=== PATIENT | male | born 1970 | race Caucasian/White ===

== ENCOUNTER 2016-11-25 19:51 | Emergency (ER) | payer OTHER, BC ==
[~2016-11-25] VITALS: Ht 170.2 cm; Wt 122.0 kg
[~2016-11-25 19:51] MED LIST: LISI40TA4 PO; OXYC5TAB84 PO
[2016-11-25 19:52] VITALS: Ht 170.2 cm; Wt 122.0 kg
--- OUTSIDE RECORDS SUMMARY | 2016-11-25 19:54 | XMS REPORT | Referral Summary ---
Author Organization Unknown Address Unknown Phone Unavailable Care Team Providers Care Acidizer Water Well Name Role Phone Patrick Mathias Primary Care Physician [phone] Encounter VC ANTONIA [phone] Date(s): 09/06/14 - 09/06/14 [facility] [address] [place] [address] [phone] Discharge Diagnosis: Kidney stone Discharge Diagnosis: Back ache Discharge Disposition: Home or Self Care Attending Physician: Yo Jimenez MD Admitting Physician: Yo Jimenez MD Vital Signs Most recent to 1 oldest [Reference Range]: Temperature Oral 36.4 degC [35.8-37.3 degC] (09/06/14 3:21 AM) Peripheral Pulse 77 bpm Rate [60-100 bpm] (09/06/14 5:14 AM) Heart Rate Monitored 77 bpm [60-100 bpm] (09/06/14 5:16 AM) Respiratory Rate 18 br/min [14-20 br/min] (09/06/14 5:16 AM) Blood Pressure 164/90 mmHg [90-140/60-90 mmHg] *HI* (09/06/14 5:16 AM) Most recent to 1 oldest [Reference Range]: SpO2 97 % (09/06/14 5:16 AM) Problem List Condition Effective Dates Status Health Status Informant Elevated liver Active patient function(Confirmed) Allergies, Adverse Reactions, Alerts No Known Allergies Medications Flomax 0.4 mg oral capsule 1 caps, Oral, Daily, # 30 caps, 0 Refill(s) Start Date: 09/06/14 Status: Ordered Flomax 0.4 mg oral capsule 1 caps, Oral, Daily, # 5 caps, 0 Refill(s) Start Date: 07/10/14 Stop Date: 07/15/14 Status: Ordered Levsin SL 0.125 mg sublingual tablet 1 tabs, SubLingual, q4hr, # 30 tabs, 0 Refill(s), Pharmacy: Via [facility], 1 tabs SubLingual q4hr Start Date: 01/17/14 Status: Ordered lisinopril Oral, Daily, 0 Refill(s) Start Date: 01/17/14 Status: Ordered Naprosyn 250 mg oral tablet 1 tabs, Oral, BID, as needed for pain, # 20 tabs, 0 Refill(s) Start Date: 09/06/14 Status: Ordered naproxen 500 mg oral tablet 1 tabs, Oral, BID, as needed for pain, # 20 tabs, 0 Refill(s), Pharmacy: Via [facility], 1 tabs Oral BID,PRN:as needed for pain Start Date: 01/17/14 Status: Ordered oxyCODONE Oral, 0 Refill(s) Start Date: 01/17/14 Status: Ordered sertraline 100 mg oral tablet tabs, Oral, Daily, 0 Refill(s) Start Date: 01/17/14 Status: Ordered Zofran ODT 4 mg oral tablet, disintegrating 1 tabs, Oral, q8hr, Nausea, # 12 tabs, 0 Refill(s) Start Date: 07/10/14 Status: Ordered Results Chemistry Most recent to 1 oldest [Reference Range]: Sodium Venous 143 mEq/L [136-144 mEq/L] (09/06/14 3:55 AM) Potassium Venous 3.6 mEq/L 1 [3.6-5.1 mEq/L] (09/06/14 3:55 AM) Calcium Ionized 1.17 mmol/L Venous [1.19-1.41 *LOW* mmol/L] (09/06/14 3:55 AM) Total CO2 Venous 21 mEq/L [25-29 mEq/L] *LOW* (09/06/14 3:55 AM) HGB Venous NPT 15.3 gm/dL [14.0-16.0 gm/dL] (09/06/14 3:55 AM) HCT Venous 45.0 % [42.0-52.0 %] (09/06/14 3:55 AM) Glucose Venous 109 mg/dL [70-100 mg/dL] *HI* (09/06/14 3:55 AM) BUN Venous [4-20] 12 (09/06/14 3:55 AM) Creatinine Venous 1.1 mg/dL [0.7-1.2 mg/dL] (09/06/14 3:55 AM) Venous CL [99-109 106 mEq/L mEq/L] (09/06/14 3:55 AM) Anion Gap, Juan 16 [3-20] (09/06/14 3:55 AM) 1Result Comment: This test was performed on a whole blood specimen. The presence or absence of hemolysis cannot be assessed. Hemolysis can falsely elevate potassium levels. Normals are for venous specimens only. Urinalysis Most recent to 1 oldest [Reference Range]: UA Color Dk Yellow (09/06/14 4:01 AM) UA Appear Clear (09/06/14 4:01 AM) UA pH [5.0-8.0] 5.0 (09/06/14 4:01 AM) UA Leuk Est Negative [Negative] (09/06/14 4:01 AM) UA Nitrite Negative [Negative] (09/06/14 4:01 AM) UA Protein Trace [Negative] *ABN* (09/06/14 4:01 AM) UA Glucose Negative [Negative] (09/06/14 4:01 AM) UA Ketones Negative [Negative] (09/06/14 4:01 AM) UA Urobilinogen Negative [<1.0] (09/06/14 4:01 AM) UA Bili [Negative] Negative (09/06/14 4:01 AM) UA Blood [Negative] Negative (09/06/14 4:01 AM) UA Spec Grav 1.027 [1.003-1.030] (09/06/14 4:01 AM) Type Clean Catch (09/06/14 4:01 AM) Immunizations No data available for this section Procedures Procedure Date Related Diagnosis Body Site Colonoscopy 07/29/12 Scrotal varicocelectomy 08/29/04 Arthroscopy of knee1 10/28/03 Esophagogastroduodenoscopy 09/26/02 Cardiac catheterization 08/29/02 1rt knee Social History Social History Type Response Smoking Status Former smoker; Type: Cigarettes1 1pt quit 11-09-2011 Assessment and Plan No data available for this section
--- OUTSIDE RECORDS SUMMARY | 2016-11-25 19:54 | XMS REPORT | Referral Summary ---
Author Author [facility] Care Organization [facility] Address Unknown Phone Unavailable Care Team Providers Care Ems Educator Name Role Phone Ani Peñaloza Primary Care Physician [phone] Encounter Date(s): 05/26/16 - 05/26/16 [facility] [address] [place] [address] Discharge Diagnosis: Closed fracture of capitate of left wrist Discharge Diagnosis: Left hand pain Discharge Diagnosis: Swelling of left hand Discharge Diagnosis: Left wrist pain Discharge Disposition: 01-Home or Self Care Attending Physician: Navin Mcneil MD Admitting Physician: Navin Mcneil MD Vital Signs Most recent to 1 oldest [Reference Range]: Temperature Tympanic 36.6 degC [36.6-38.1 degC] (05/26/16 8:07 AM) Peripheral Pulse 88 bpm Rate [60-100 bpm] (05/26/16 8:07 AM) Respiratory Rate 20 br/min [14-20 br/min] (05/26/16 8:07 AM) Blood Pressure 130/92 mmHg [90-140/60-90 mmHg] (05/26/16 8:07 AM) SpO2 96 % (05/26/16 8:07 AM) Problem List Condition Effective Dates Status Health Status Informant Elevated liver Active patient function(Confirmed) Hypertension(Confirm Active ed) Nephrolithiasis(Conf Active irmed) Migraine Active headache(Confirmed) Allergies, Adverse Reactions, Alerts No Known Allergies Medications aspirin 81 mg, Oral, Daily, 0 Refill(s) Start Date: 12/30/15 Status: Ordered lisinopril 40 mg, Oral, Daily, 0 Refill(s) Start Date: 01/17/14 Status: Ordered [place] 7.5 mg-325 mg oral tablet 1 tabs, Oral, q4hr, as needed for pain, # 30 tabs, 0 Refill(s) Start Date: 05/26/16 Status: Ordered Results No data available for this section Immunizations No data available for this section Procedures Procedure Date Related Diagnosis Body Site Application of short arm splint (forearm to 05/26/16 hand); static.. Colonoscopy 07/29/12 Scrotal varicocelectomy 08/29/04 Arthroscopy of knee1 10/28/03 Esophagogastroduodenoscopy 09/26/02 Cardiac catheterization 08/29/02 Right inguinal hernia 1rt knee Social History Social History Type Response Smoking Status Former smoker; Type: Cigarettes1 1pt quit 11-09-2011 Assessment and Plan Extracted from: Title: Ambulatory Patient Education Author: Navin Mcneil MD Date: Musculoskeletal Wrist Fracture A wrist fracture is a break or crack in one of the bones of your wrist. Your wrist is made up of eight small bones at the palm of your hand (carpal bones) and two long bones that make up your forearm (radius and ulna). CAUSES A direct blow to the wrist. Falling on an outstretched hand. Trauma, such as a car accident or a fall. RISK FACTORS Risk factors for wrist fracture include: Participating in contact and high-risk sports, such as skiing, biking, and ice skating. Taking steroid medicines. Smoking. Being female. Being . Drinking more than three alcoholic beverages per day. Having low or lowered bone density (osteoporosis or osteopenia). Age. Older adults have decreased bone density. Women who have had menopause. History of previous fractures. SIGNS AND SYMPTOMS Symptoms of wrist fractures include tenderness, bruising, and inflammation. Additionally, the wrist may hang in an odd position or appear deformed. DIAGNOSIS Diagnosis may include: Physical exam. X-ray. TREATMENT Treatment depends on many factors, including the nature and location of the fracture, your age, and your activity level. Treatment for wrist fracture can be nonsurgical or surgical. Nonsurgical Treatment A plaster cast or splint may be applied to your wrist if the bone is in a good position. If the fracture is not in good position, it may be necessary for your health care provider to realign it before applying a splint or cast. Usually, a cast or splint will be worn for several weeks. Surgical Treatment Sometimes the position of the bone is so far out of place that surgery is required to apply a device to hold it together as it heals. Depending on the fracture, there are a number of options for holding the bone in place while it heals, such as a cast and metal pins. HOME CARE INSTRUCTIONS Keep your injured wrist elevated and move your fingers as much as possible. Do not put pressure on any part of your cast or splint. It may break. Use a plastic bag to protect your cast or splint from water while bathing or showering. Do not lower your cast or splint into water. Take medicines only as directed by your health care provider. Keep your cast or splint clean and dry. If it becomes wet, damaged, or suddenly feels too tight, contact your health care provider right away. Do not use any tobacco products including cigarettes, chewing tobacco, or electronic cigarettes. Tobacco can delay bone healing. If you need help quitting, ask your health care provider. Keep all follow-up visits as directed by your health care provider. This is important. Ask your health care provider if you should take supplements of calcium and vitamins C and D to promote bone healing. SEEK MEDICAL CARE IF: Your cast or splint is damaged, breaks, or gets wet. You have a fever. You have chills. You have continued severe pain or more swelling than you did before the cast was put on. SEEK IMMEDIATE MEDICAL CARE IF: Your hand or fingernails on the injured arm turn blue or smith, or feel cold or numb. You have decreased feeling in the fingers of your injured arm. MAKE SURE YOU: Understand these instructions. Will watch your condition. Will get help right away if you are not doing well or get worse. This information is not intended to replace advice given to you by your health care provider. Make sure you discuss any questions you have with your health care provider. Document Released: 04/24/2006 Document Revised: 08/05/2015 Document Reviewed: [employer] Patient Education 2016 [employer] No follow up information was provided. Extracted from: Title: left hand and wrist pain Author: Navin Mcneil MD Date: 05/26/16 Impression and Plan Diagnosis Closed fracture of capitate of left wrist ([id number] S62.132A, Discharge, Medical ). Left hand pain ([id number] M79.642, Discharge, Medical). Left wrist pain ([id number] M25.532, Discharge, Medical). Swelling of left hand ([id number] M79.89, Discharge, Medical). Plan: 1) Short arm/wrist/hand splint made and applied. 2) Ice to the fracture site off and on. 3) Uric acid level was drawn--normal at 5.6. 4) See Tavo Llamas or Donya next week. 5) Arm sling offered.. Orders Orders (Selected) Outpatient Orders Ordered Application Of Short Arm Splint (Forearm To Hand); Static 89864: Office Visit Level 4 Est 55725: Prescriptions Prescribed [place] 7.5 mg-325 mg oral tablet: 1 tabs, Oral, q4hr, PRN: as needed for pain, 30 tabs, 0 Refill(s). Dx/Order Association Plan: Diagnosis: Closed fracture of capitate of left wrist Comment: Ordered: Application Of Short Arm Splint (Forearm To Hand); Static [id number]; 05/26/16 14:31:00 CDT, 1, Closed fracture of capitate of left wrist | Left hand pain | Left wrist pain Office Visit Level 4 Est [id number]; 05/26/16 14:24:00 CDT, Closed fracture of capitate of left wrist | Left hand pain | Left wrist pain | Swelling of left hand Diagnosis: Left hand pain Comment: Ordered: Application Of Short Arm Splint (Forearm To Hand); Static 53818; 05/26/16 14:31:00 CDT, 1, Closed fracture of capitate of left wrist | Left hand pain | Left wrist pain Office Visit Level 4 Est 11492; 05/26/16 14:24:00 CDT, Closed fracture of capitate of left wrist | Left hand pain | Left wrist pain | Swelling of left hand Diagnosis: Left wrist pain Comment: Ordered: Application Of Short Arm Splint (Forearm To Hand); Static 41471; 05/26/16 14:31:00 CDT, 1, Closed fracture of capitate of left wrist | Left hand pain | Left wrist pain Office Visit Level 4 Est [id number]; 05/26/16 14:24:00 CDT, Closed fracture of capitate of left wrist | Left hand pain | Left wrist pain | Swelling of left hand Diagnosis: Swelling of left hand Comment: Ordered: Office Visit Level 4 Est [id number]; 10/29/16 14:24:00 CDT, Closed fracture of capitate of left wrist | Left hand pain | Left wrist pain | Swelling of left hand End of Orders ."
--- OUTSIDE RECORDS SUMMARY | 2016-11-25 19:54 | XMS REPORT ---
Author Author Ld Thomas [facility] [employer] Address Unknown Phone Unavailable Care Team Providers Care University Internship Name Role Phone Ld Thomas CP Unavailable Allergies No Known Allergies Problems Problem Type Condition Code Onset Dates Condition Status Problem Thyroid nodule E04.1 Active Assessment Hyperthyroidism E05.90 Active Problem Hyperthyroidism E05.90 Active Medications No Known Medications Results No Known Results Summary Purpose [employer] Submission
--- OUTSIDE RECORDS SUMMARY | 2016-11-25 19:54 | XMS REPORT | Referral Summary ---
Author Author [facility] Care Organization [facility] Address Unknown Phone Unavailable Care Team Providers Care Header Dock Name Role Phone Ani Peñaloza Primary Care Physician [phone] Encounter VC Date(s): 12/30/15 - 12/30/15 [facility] [address] [place] [address]- Discharge Diagnosis: History of right inguinal hernia repair Discharge Disposition: 01-Home or Self Care Attending Physician: Roni Jamison PA-C Admitting Physician: Roni Jamison PA-C Vital Signs Most recent to 1 oldest [Reference Range]: Temperature Tympanic 36.3 degC [36.6-38.1 degC] *LOW* (12/30/15 2:46 PM) Peripheral Pulse 96 bpm Rate [60-100 bpm] (12/30/15 2:46 PM) Blood Pressure 128/82 mmHg [90-140/60-90 mmHg] (12/30/15 2:46 PM) SpO2 96 % (12/30/15 2:46 PM) Problem List Condition Effective Dates Status Health Status Informant Elevated liver Active patient function(Confirmed) Allergies, Adverse Reactions, Alerts No Known Allergies Medications aspirin 0 Refill(s) Start Date: 12/30/15 Status: Ordered lisinopril Oral, Daily, 0 Refill(s) Start Date: 01/17/14 Status: Ordered oxyCODONE Oral, 0 Refill(s) Start Date: 01/17/14 Status: Ordered Results No data available for this section Immunizations No data available for this section Procedures Procedure Date Related Diagnosis Body Site Colonoscopy 07/29/12 Scrotal varicocelectomy 08/29/04 Arthroscopy of knee1 10/28/03 Esophagogastroduodenoscopy 09/26/02 Cardiac catheterization 08/29/02 1rt knee Social History Social History Type Response Smoking Status Former smoker; Type: Cigarettes1 1pt quit 11-09-2011 Assessment and Plan Extracted from: Title: R groin pain Author: Roni Jamison PA-C Date: 12/30/15 Assessment/Plan Groin pain At this time, there was no signs of infection or grossevidence of strangulated hernia. I recommended follow-up in the ER if he develops any severesymptoms,fever,septic symptoms,abdominal pain or peritonitis follow-up in ER. A shouldn't has pain medication for his knee, does not require any additional pain medication. History of right inguinal hernia repair Arranged a follow-up appointment with Dr. Mata, January 02. Patient stable upon discharge, alert and orientated with no apparent distress, and indicated understanding of discharge instructions. If symptoms worsen at any time, patient will go to the nearest ER for further evaluation.
--- OUTSIDE RECORDS SUMMARY | 2016-11-25 19:54 | XMS REPORT ---
Author Author Ld Thomas Organization [employer] Address Unknown Phone Unavailable Care Team Providers Care Marine Pipefitter Name Role Phone Ld Thomas CP Unavailable Allergies, Adverse Reactions, Alerts Substance Reaction Event Type N.K.D.A. Info Not Available Non Drug Allergy Problems Problem Type Condition Code Onset Dates Condition Status Problem Thyroid nodule E04.1 Active Assessment Hyperthyroidism E05.90 Active Problem Hyperthyroidism E05.90 Active Assessment Thyroid nodule E04.1 Active Medications Medication Code System Code Instructions Start Date End Date Status Dosage Oxycodone HCl [facility] [address]-48 30 MG Orally every 6 hrs 1 tablet as needed Lisinopril [facility] [address]-20 40 MG Orally Once a day 1 tablet Procedures Procedure Coding System Code Date FREE ASSAY (FT-3) CPT-4 25200 Jun 02, 2015 ASSAY THYROID STIM HORMONE CPT-4 03131 Jun 02, 2015 Venipuncture CPT-4 19292 Jun 02, 2015 ASSAY OF TSI CPT-4 35143 Jun 02, 2015 ASSAY OF FREE THYROXINE CPT-4 52342 Jun 02, 2015 Office Visit, New Pt., Level 3 CPT-4 09370 Jun 02, 2015 IMMUNOASSAY, LIANET CPT-4 13400 Jun 02, 2015 Vital Signs Date/Time: Jun 02, 2015 Blood Pressure Systolic 150 mm Hg Weight 249.2 lbs Height 68 in BMI 37.89 Index Respiratory Rate 16 /min Cardiac Monitoring Heart Rate 90 /min Blood Pressure Diastolic 92, 140 mm Hg Results Name Result Date Reference Range Unit Abnormality Flag Thyrotropin Receptor Ab, Serum (TRAb) Summary Purpose [employer] Submission
--- OUTSIDE RECORDS SUMMARY | 2016-11-25 19:54 | XMS REPORT | Referral Summary ---
Author Author [facility] Organization [facility] Address Unknown Phone Unavailable Care Team Providers Care Grounds And Nursery Specialist Name Role Phone Denise Stallworth Primary Care Physician [phone] Encounter [facility] [id number] Date(s): 09/12/16 - 09/12/16 [facility] [address] [place] [address] Discharge Diagnosis: Nephrolithiasis Discharge Diagnosis: Acne rosacea Discharge Diagnosis: Gout, unspecified Discharge Diagnosis: Pure hypercholesterolemia, unspecified Discharge Diagnosis: Chronic gout Discharge Diagnosis: Abnormal TSH Discharge Diagnosis: Hypertension Discharge Diagnosis: Migraine headache Discharge Diagnosis: Chronic back pain Discharge Diagnosis: Snoring Discharge Diagnosis: Adult-onset obesity Discharge Disposition: 01-Home or Self Care Attending Physician: Frank Stallworth MD Admitting Physician: Frank Stallworth MD Vital Signs Most recent to 1 oldest [Reference Range]: Blood Pressure 150/96 mmHg [90-140/60-90 mmHg] *HI* (09/12/16 2:26 PM) Problem List Condition Effective Dates Status Health Status Informant Adult-onset Active obesity(Confirmed) Chronic back Active pain(Confirmed) Elevated liver Active patient function(Confirmed) Chronic Active gout(Confirmed) Hypertension(Confirm Active ed) Nephrolithiasis(Conf Active irmed) Migraine Active headache(Confirmed) Morbid Active patient obesity(Confirmed) Acne Active rosacea(Confirmed) Abnormal Active TSH(Confirmed) Allergies, Adverse Reactions, Alerts No Known Allergies Medications Advil 200 mg oral tablet mg tabs, Oral, q6hr, 0 Refill(s) Start Date: 09/12/16 Status: Ordered cyclobenzaprine 10 mg oral tablet 10 mg 1 tabs, Oral, TID, as needed for spasm, # 60 tabs, 0 Refill(s), Pharmacy: [facility] #[id number], 1 tabs Oral TID,PRN:as needed for spasm Start Date: 09/12/16 Status: Ordered lisinopril 40 mg oral tablet 40 mg 1 tabs, Oral, Daily, # 90 tabs, 0 Refill(s), Pharmacy: [facility] # [id number] Start Date: 09/12/16 Status: Ordered Results Hematology Most recent to 1 oldest [Reference Range]: WBC [4.8-10.8 7.2 10*3/uL 10*3/uL] (09/12/16 3:00 PM) RBC [4.60-6.20] 5.51 (09/12/16 3:00 PM) Hgb [14.0-18.0 15.6 gm/dL gm/dL] (09/12/16 3:00 PM) Hct [42.0-52.0 %] 46.5 % (09/12/16 3:00 PM) MCV [82.0-99.0 fL] 84.4 fL (09/12/16 3:00 PM) MCH [27.0-32.0 pg] 28.3 pg (09/12/16 3:00 PM) MCHC [32.0-36.0 33.5 gm/dL gm/dL] (09/12/16 3:00 PM) RDW [11.5-14.5 %] 13.4 % (09/12/16 3:00 PM) Platelet [150-400 231 10*3/uL 10*3/uL] (09/12/16 3:00 PM) MPV [8.8-14.8 fL] 11.3 fL (09/12/16 3:00 PM) Immature 0.1 % Granulocytes (09/12/16 3:00 PM) [0.0-1.0 %] Neutrophils [51-75 55 % %] (09/12/16 3:00 PM) Lymphocytes [20-46 28 % %] (09/12/16 3:00 PM) Monocytes [4-11 %] 13 % *HI* (09/12/16 3:00 PM) Eosinophils [0-4 %] 4 % (09/12/16 3:00 PM) Basophils [0-2 %] 1 % (09/12/16 3:00 PM) Neutro Absolute 3.92 [1.90-7.00] (09/12/16 3:00 PM) Lymph Absolute 2.02 [0.80-3.30] (09/12/16 3:00 PM) Reeves Absolute 0.90 [0.30-1.00] (09/12/16 3:00 PM) Eos Absolute 0.29 [0.00-0.50] (09/12/16 3:00 PM) Baso Absolute 0.04 [0.00-0.20] (09/12/16 3:00 PM) Chemistry Most recent to 1 oldest [Reference Range]: Sodium Lvl [135-144 142 mEq/L mEq/L] (09/12/16 3:00 PM) Potassium Lvl 4.1 mEq/L [3.5-5.2 mEq/L] (09/12/16 3:00 PM) Chloride [99-111 107 mEq/L mEq/L] (09/12/16 3:00 PM) CO2 [23-31 mEq/L] 26 mEq/L (09/12/16 3:00 PM) AGAP [3-20] 9 (09/12/16 3:00 PM) BUN [9-21 mg/dL] 10 mg/dL (09/12/16 3:00 PM) Glucose Lvl [70-99 86 mg/dL mg/dL] (09/12/16 3:00 PM) Creatinine Lvl 0.85 mg/dL [0.72-1.25 mg/dL] (09/12/16 3:00 PM) eGFR [>60 mL/min] >60 mL/min 1 (09/12/16 3:00 PM) Calcium Lvl 9.6 mg/dL 2 [8.4-10.2 mg/dL] (09/12/16 3:00 PM) Albumin Lvl [3.5-5.0 4.2 gm/dL gm/dL] (09/12/16 3:00 PM) Total Protein 7.6 gm/dL [6.1-7.7 gm/dL] (09/12/16 3:00 PM) Globulin [1.8-4.0 3.4 gm/dL gm/dL] (09/12/16 3:00 PM) ALT [0-55 U/L] 147 U/L *HI* (09/12/16 3:00 PM) AST [5-34 U/L] 139 U/L 3 *HI* (09/12/16 3:00 PM) Alk Phos [40-150 119 U/L U/L] (09/12/16 3:00 PM) Bili Total [0.2-1.2 0.8 mg/dL mg/dL] (09/12/16 3:00 PM) Uric Acid [3.5-7.2 5.3 mg/dL mg/dL] (09/12/16 3:00 PM) Chol [0-199 mg/dL] 195 mg/dL (09/12/16 3:00 PM) Trig [0-149 mg/dL] 180 mg/dL *HI* (09/12/16 3:00 PM) HDL [40-84 mg/dL] 43 mg/dL (09/12/16 3:00 PM) LDL [0-130 mg/dL] 116 mg/dL (09/12/16 3:00 PM) VLDL Cholesterol 36 mg/dL [0-28 mg/dL] *HI* (09/12/16 3:00 PM) Cardiac Risk 4.5 [0.0-5.7] (09/12/16 3:00 PM) TSH with Reflex Free 0.64 T4 [0.35-4.94] (09/12/16 3:00 PM) Hgb A1c [4.1-5.6 %] 5.0 % (09/12/16 3:00 PM) eAvg Glucose 96.8 mg/dL (09/12/16 3:00 PM) 1Result Comment: Multiply eGFR results by 1.21 for race. 2Result Comment: Please note reference range change effective 08/31/2016. 3Result Comment: Specimen slightly hemolyzed. LDH, AST and Direct Bilirubin may be affected. Urinalysis Most recent to 1 oldest [Reference Range]: UA Color DkYellow (09/12/16 3:08 PM) UA Appear Clear (09/12/16 3:08 PM) UA pH [5.0-8.0] 6.5 (09/12/16 3:08 PM) UA Leuk Est Negative [Negative] (09/12/16 3:08 PM) UA Nitrite Negative [Negative] (09/12/16 3:08 PM) UA Protein Trace [Negative] *ABN* (09/12/16 3:08 PM) UA Glucose Negative [Negative] (09/12/16 3:08 PM) UA Ketones Negative [Negative] (09/12/16 3:08 PM) UA Urobilinogen 1.0 mg/dL [<1.0 mg/dL] (09/12/16 3:08 PM) UA Bili [Negative] Negative (09/12/16 3:08 PM) UA Blood [Negative] Negative (09/12/16 3:08 PM) UA Spec Grav 1.028 [1.003-1.030] (09/12/16 3:08 PM) Type Voided (09/12/16 3:08 PM) Immunizations No data available for this section Procedures Procedure Date Related Diagnosis Body Site Colonoscopy 07/29/12 Scrotal varicocelectomy 08/29/04 Arthroscopy of knee1 10/28/03 Esophagogastroduodenoscopy 09/26/02 Cardiac catheterization 08/29/02 Right inguinal hernia 1rt knee Social History Social History Type Response Smoking Status Former smoker; Type: Cigarettes1 1pt quit 11-09-2011 Assessment and Plan Extracted from: Title: Ambulatory Patient Education Author: Frank Stallworth MD Date: Musculoskeletal Back Pain, Adult Back pain is very common in adults.The cause of back pain is rarely dangerous and the pain often gets better over time.The cause of your back pain may not be known. Some common causes of back pain include: Strain of the muscles or ligaments supporting the spine. Wear and tear (degeneration) of the spinal disks. Arthritis. Direct injury to the back. For many people, back pain may return. Since back pain is rarely dangerous, most people can learn to manage this condition on their own. HOME CARE INSTRUCTIONS Watch your back pain for any changes. The following actions may help to lessen any discomfort you are feeling: Remain active. It is stressful on your back to sit or robotics systems engineer one place for long periods of time. Do not sit, drive, or robotics systems engineer one place for more than 30 minutes at a time. Take short walks on even surfaces as soon as you are able.Try to increase the length of time you walk each day. Exercise regularly as directed by your health care provider. Exercise helps your back heal faster. It also helps avoid future injury by keeping your muscles strong and flexible. Do not stay in bed.Resting more than 12 days can delay your recovery. Pay attention to your body when you bend and lift. The most comfortable positions are those that put less stress on your recovering back. Always use proper lifting techniques, including: Bending your knees. Keeping the load close to your body. Avoiding twisting. Find a comfortable position to sleep. Use a firm mattress and lie on your side with your knees slightly bent. If you lie on your back, put a pillow under your knees. Avoid feeling anxious or stressed.Stress increases muscle tension and can worsen back pain.It is important to recognize when you are anxious or stressed and learn ways to manage it, such as with exercise. Take medicines only as directed by your health care provider. Over-the- counter medicines to reduce pain and inflammation are often the most helpful. Your health care provider may prescribe muscle relaxant drugs.These medicines help dull your pain so you can more quickly return to your normal activities and healthy exercise. Apply ice to the injured area: Put ice in a plastic bag. Place a towel between your skin and the bag. Leave the ice on for 20 minutes, 23 times a day for the first 23 days. After that, ice and heat may be alternated to reduce pain and spasms. Maintain a healthy weight. Excess weight puts extra stress on your back and makes it difficult to maintain good posture. SEEK MEDICAL CARE IF: You have pain that is not relieved with rest or medicine. You have increasing pain going down into the legs or buttocks. You have pain that does not improve in one week. You have night pain. You lose weight. You have a fever or chills. SEEK IMMEDIATE MEDICAL CARE IF: You develop new bowel or bladder control problems. You have unusual weakness or numbness in your arms or legs. You develop nausea or vomiting. You develop abdominal pain. You feel faint. This information is not intended to replace advice given to you by your health care provider. Make sure you discuss any questions you have with your health care provider. Document Released: 07/15/2006 Document Revised: 08/05/2015 Document Reviewed: [employer] Patient Education 2016 [employer] No follow up information was provided. Extracted from: Title: Office Visit Note Author: Frank Stallworth MD Date: 09/12/16 Assessment/Plan Abnormal TSH Lab pending. Ordered: TSH with Reflex Free T4 Acne rosacea Discussed. We discussed several options for treatment for this condition. The patient declined any changes or other treatments at this time. Consider minocin 100g po daily or Dermatology consult when interested. Adult-onset obesity Diet and exercise as tolerated and feasible. Consider medication when interested. Consider saxsenda/victoza when interested. Chronic back pain Xrays and lab pending. Flexeril 10mg po tid prn may cause sedation. RTC if not improving. Ordered: XR Abdomen AP XR Chest 2 Views Chronic gout The patient's issue is nearly or completely resolved. Lab pending.Likely caused wrist pain that is resolved and related to past kidney stone. Hypertension The patient had an elevated blood pressure reading and is to monitor their bp and call with a report if consistently > 140/90. Restartlisinopril 40mg po daily and RTC in 30 days for a recheck. Ordered: CBC w/ Differential Comprehensive Metabolic Panel Urinalysis with Culture if Indicated Migraine headache This issue was reviewed, appears stable, and current therapy continued except as mentioned. Appropriate lab was reviewed from the most recent appropriate entry and lab was ordered if needed in the cpoe/nursing orders, and follow up recommended generally in 90 days and no later then six months. Nephrolithiasis The patient's issue is nearly or completely resolved. There is no further issues or testing desired by them at this time. Snoring To Sleep Medicine for evaluation. A work/school note was offered and deferred by the patient.
--- OUTSIDE RECORDS SUMMARY | 2016-11-25 19:54 | XMS REPORT | Referral Summary ---
Author Organization Unknown Address Unknown Phone Unavailable Care Team Providers Care Bricklayer Paving Brick Name Role Phone Patrick Mathias Primary Care Physician [phone] Encounter [facility] [id number] Date(s): 11/23/14 - 11/23/[address] [id number] Discharge Disposition: Home or Self Care Attending Physician: Eriberto Mathias MD Vital Signs No data available for this section Problem List Condition Effective Dates Status Health [...] # 30 tabs, 0 Refill(s), Pharmacy: [facility], 1 tabs SubLingual q4hr Start [...] # 20 tabs, 0 Refill(s), Pharmacy: [facility], 1 tabs Oral BID,PRN:as needed for pain Start Date: 01/17/14 Status: Ordered oxyCODONE Oral, 0 Refill(s) Start Date: 01/17/14 Status: Ordered sertraline 100 mg oral tablet tabs, Oral, Daily, 0 Refill(s) Start Date: 01/17/14 Status: Ordered Zofran ODT 4 mg oral tablet, disintegrating 1 tabs, Oral, q8hr, Nausea, # 12 tabs, 0 Refill(s) Start Date: 07/10/14 Status: Ordered Results No data available for [...]
--- OUTSIDE RECORDS SUMMARY | 2016-11-25 19:54 | XMS REPORT ---
Author Author Rodrigo Ball Organization [employer] Address Unknown Phone Unavailable Care Team Providers Care Machine Hamper Maker Name Role Phone Rodrigo Ball CP Unavailable Allergies No Known Allergies Problems Problem Type Condition Code Onset Dates Condition Status Problem Essential (primary) hypertension I10 Active Medications No Known Medications Results No Known Results Summary Purpose [employer] Submission
--- OUTSIDE RECORDS SUMMARY | 2016-11-25 19:55 | XMS REPORT | Referral Summary ---
Author Author [facility] Organization [facility] Address Unknown Phone Unavailable Care Team Providers Care Seat Scooper Machine Name Role Phone Ani Peñaloza Primary Care Physician [phone] Encounter [facility] Date(s): 01/04/16 - 01/04/16 [facility] [address] [place] [address] [place] [id number]- Discharge Diagnosis: Rt inguinal pain Discharge Disposition: 01-Home or Self Care Attending Physician: Constantin Cordon MD Admitting Physician: Constantin Cordon MD Vital Signs Most recent to 1 oldest [Reference Range]: Temperature Tympanic 37 degC [36.6-38.1 degC] (01/04/16 10:33 AM) Blood Pressure 138/100 mmHg [90-140/60-90 mmHg] (01/04/16 10:33 AM) Problem List Condition Effective Dates Status Health Status Informant Elevated liver Active patient function(Confirmed) Hypertension(Confirm Active ed) Nephrolithiasis(Conf Active irmed) Migraine Active headache(Confirmed) Allergies, Adverse Reactions, Alerts No Known Allergies Medications aspirin 81 mg, Oral, Daily, 0 Refill(s) Start Date: 12/30/15 Status: Ordered lisinopril 40 mg, Oral, Daily, 0 Refill(s) Start Date: 01/17/14 Status: Ordered oxyCODONE 5 mg, Oral, TID, 0 Refill(s) Start Date: 01/17/14 Status: Ordered Results No data available for this section Immunizations No data available for this section Procedures Procedure Date Related Diagnosis Body Site Colonoscopy 07/29/12 Scrotal varicocelectomy 08/29/04 Arthroscopy of knee1 10/28/03 Esophagogastroduodenoscopy 09/26/02 Cardiac catheterization 08/29/02 Right inguinal hernia 1rt knee Social History Social History Type Response Smoking Status Former smoker; Type: Cigarettes1 1pt quit 04-13-2012 Assessment and Plan Extracted from: Title: Ambulatory Patient Education Author: Constantin Cordon MD Date: 01/03 Emergency Medicine Abdominal Pain, Adult Many things can cause abdominal pain. Usually, abdominal pain is not caused by a disease and will improve without treatment. It can often be observed and treated at home. Your health care provider will do a physical exam and possibly order blood tests and X-rays to help determine the seriousness of your pain. However, in many cases, more time must pass before a clear cause of the pain can be found. Before that point, your health care provider may not know if you need more testing or further treatment. HOME CARE INSTRUCTIONS Monitor your abdominal pain for any changes. The following actions may help to alleviate any discomfort you are experiencing: Only take [id number]-[id number] or prescription medicines as directed by your health care provider. Do not take laxatives unless directed to do so by your health care provider. Try a clear liquid diet (broth, tea, or water) as directed by your health care provider. Slowly move to a bland diet as tolerated. SEEK MEDICAL CARE IF: You have unexplained abdominal pain. You have abdominal pain associated with nausea or diarrhea. You have pain when you urinate or have a bowel movement. You experience abdominal pain that wakes you in the night. You have abdominal pain that is worsened or improved by eating food. You have abdominal pain that is worsened with eating fatty foods. You have a fever. SEEK IMMEDIATE MEDICAL CARE IF: Your pain does not go away within 2 hours. You keep throwing up (vomiting). Your pain is felt only in portions of the abdomen, such as the right side or the left lower portion of the abdomen. You pass bloody or black tarry stools. MAKE SURE YOU: Understand these instructions. Will watch your condition. Will get help right away if you are not doing well or get worse. This information is not intended to replace advice given to you by your health care provider. Make sure you discuss any questions you have with your health care provider. Document Released: 04/24/2006 Document Revised: 08/05/2015 Document Reviewed: [employer] Patient Information 2016 [employer], [facility]. No follow up information was provided.
--- OUTSIDE RECORDS SUMMARY | 2016-11-25 19:55 | XMS REPORT | Continuity of Care Document ---
Author Author [facility] Organization [facility] Address Unknown Phone Unavailable Allergies Active Description Code Type Severity Reaction Onset Reported/Identified Relationship to Patient Clinical Status Yes No Known Drug Allergies Drug Allergy 10/19/2010 Yes No Known Drug Allergies Drug Allergy N/A N/A 05/07/2013 Yes No Known Allergies NKMA N/A N/A 01/17/2014 Yes No Known Allergies NKMA N/A N/A 01/17/2014 Medications Medication Packaging Start Date Stop Date Route Dosage Sig oxyCODONE(oxyCODONE) 01/17/2014 05/26/2016 Oral 5 mg 5 mg, Oral , TID, 0 Refill(s) sertraline(sertraline 100 mg oral tablet) tabs 01/17/201409/2015 Oral mg tabs, Oral, Daily lisinopril(lisinopril) 01/17/2014 09/12/2016 Oral 40 mg 40 mg, Oral, Daily, 0 Refill(s) ondansetron(Zofran) 2 mL 01/17/2014 01/17/2014 IV Push 4 mg 4 mg, IV Push, Once HYDROmorphone(Dilaudid) 1 mL 01/17/2014 01/17/2014 IV Push 1 mg 1 mg, IV Push, Once ketorolac(Toradol) 1 mL 01/17/2014 01/17/2014 IV Push 30 mg 30 mg , IV Push, Once naproxen(naproxen 500 mg oral tablet) 1 tabs 01/17/20142015 Oral 500 mg 1 tabs, Oral, BID, 20 tabs, PRN: as needed for pain hyoscyamine(Levsin SL 0.125 mg sublingual tablet) 1 tabs 01/17/2014 12/30/2015 SubLingual 0.125 mg 1 tabs, SubLingual, q4hr, 30 tabs ketorolac(Toradol) 1 mL 07/10/2014 07/10/2014 IV Push 30 mg 30 mg , IV Push, Once morphine(morphine) 2 mL 07/10/2014 07/10/2014 IV Push 4 mg 4 mg, IV Push, Once ondansetron(Zofran) 2 mL 07/10/2014 07/10/2014 IV Push 4 mg 4 mg, IV Push, Once oxyCODONE-acetaminophen(Percocet 5/325 oral tablet) 1 tabs 07/10/2014 07/23/2014 Oral 1 tabs, Oral, q6hr, 24 tabs, PRN: as needed for pain ondansetron(Zofran ODT 4 mg oral tablet, disintegrating) 1 tabs 07/10/2014 12/30/2015 Oral 4 mg 1 tabs, Oral, q8hr, 12 tabs, PRN: Nausea tamsulosin(Flomax 0.4 mg oral capsule) 1 caps 07/10/20142015 Oral 0.4 mg 1 caps, Oral, Daily, 5 caps ketorolac(Toradol) 2 mL 09/06/2014 09/06/2014 IntraMuscular 60 mg 60 mg, IntraMuscular, Once Sodium Chloride 0.9%(Sodium Chloride 0.9% 1,000 mL) 1,000 mL 09/06/2014 09/06/2014 IV bolus, IV tamsulosin(Flomax 0.4 mg oral capsule) 1 caps 09/06/20142015 Oral 0.4 mg 1 caps, Oral, Daily, 30 caps naproxen(Naprosyn 250 mg oral tablet) 1 tabs 09/06/20142015 Oral 250 mg 1 tabs, Oral, BID, 20 tabs, PRN: as needed for pain aspirin(aspirin) 12/30/2015 09/12/2016 Oral 81 mg 81 mg, Oral , Daily, 0 Refill(s) HYDROcodone-acetaminophen([place] 7.5 mg-325 mg oral tablet) 1 tabs 05/26/2016 09/12/2016 Oral 1 tabs, Oral, q4hr, PRN: as needed for pain, 30 tabs, 0 Refill(s) ibuprofen(Advil 200 mg oral tablet) tabs 09/12/2016 Oral mg mg=tabs, Oral, q6hr, 0 Refill(s) lisinopril(lisinopril 40 mg oral tablet) 1 tabs 09/12/2016 Oral 40 mg 40 mg=1 tabs, Oral, Daily, 90 tabs, 0 Refill(s) cyclobenzaprine(cyclobenzaprine 10 mg oral tablet) 1 tabs 09/12/2016 Oral 10 mg 10 mg=1 tabs, Oral, TID, PRN: as needed for spasm, 60 tabs, 0 Refill(s) minocycline(Minocin 100 mg oral capsule) 1 caps 10/12/2016 Oral 100 mg 100 mg=1 caps, Oral, Daily, 30 caps, 0 Refill(s) Problems Date Dx Coded Attending Type Code Diagnosis Diagnosed By 03/26/2012 Kassidy Mathias MD Final 305.1 TOBACCO USE DISORDER 03/26/2012 Kassidy Mathias MD Final 715.96 OSTEOARTHOSIS NOS-LOW LE 05/07/2013 Roberto Bray III, MD Final 401.9 HYPERTENSION NOS 05/07/2013 Roberto Bray III, MD Final 535.50 GASTRODUODENITIS NOS 05/07/2013 Roberto Bray III, MD Final 571.8 CHRONIC LIVER DIS NEC 05/07/2013 Roberto Bray III, MD Admitting 789.00 ABDOMINAL PAIN-SITE NOS 07/12/2014 Kalpana Drew Final 592.1 CALCULUS OF URETER 07/12/2014 Kalpana Drew Reason 789.09 ABDOMINAL PAIN, OTHER SPECIFIED SITE ; MULTIPLE SITES 09/07/2014 Wilber Owen MD Final 592.0 CALCULUS OF KIDNEY 09/07/2014 Wilber Owen MD Final 724.5 BACKACHE, UNSPECIFIED 09/07/2014 Wilber Owen MD Reason 789.09 ABDOMINAL PAIN, OTHER SPECIFIED SITE ; MULTIPLE SITES 11/25/2014 Reason 241.0 NONTOXIC UNINODULAR GOITER 11/25/2014 Final 242.90 THYROTOXICOSIS WITHOUT MENTION OF GOITER OR OTHER CAUSE, AND WITHOUT MENTIO Procedures Results Test Result Range Uric Acid - 09/12/16 15:00 Uric Acid 5.3 mg/dL 3.5-7.2 Comprehensive Metabolic Panel (CMP) - 09/12/16 15:00 Albumin 4.2 g/dL 3.5-5.0 Alkaline Phosphatase 119 U/L 40-150 ALT (SGPT) 147 U/L 0-55 Anion Gap 9 NA 3-20 AST (SGOT) 139 U/L 5-34 Bilirubin Total 0.8 mg/dL 0.2-1.2 BUN 10 mg/dL 9-21 Calcium 9.6 mg/dL 8.4-10.2 Chloride 107 mEq/L 99-111 CO2 26 mEq/L 23-31 Creatinine 0.85 mg/dL 0.72-1.25 Globulin 3.4 g/dL 1.8-4.0 Glucose 86 mg/dL 70-99 Potassium 4.1 mEq/L 3.5-5.2 Protein 7.6 g/dL 6.1-7.7 Sodium 142 mEq/L 135-144 Lipid Panel - 09/12/16 15:00 Cardiac Risk 4.5 0.0-5.7 Cholesterol 195 mg/dL 0-199 HDL Cholesterol 43 mg/dL 40-84 LDL Cholesterol 116 mg/dL 0-130 Triglycerides 180 mg/dL 0-149 VLDL Cholesterol 36 mg/dL 0-28 eGFR - 09/12/16 15:00 eGFR >60 mL/min >60 CBC With Platelet and Differential - 09/12/16 15:00 Absolute Basophils 0.04 10*3/uL 0.00- 0.20 Absolute Eosinophils 0.29 10*3/uL 0.00- 0.50 Absolute Lymphocytes 2.02 10*3/uL 0.80- 3.30 Absolute Monocytes 0.90 10*3/uL 0.30- 1.00 Absolute Neutrophils 3.92 10*3/uL 1.90- 7.00 Basophils 1 % 0-2 Eosinophils 4 % 0-4 HCT 46.5 % 42.0-52.0 HGB 15.6 g/dL 14.0-18.0 Immature Granulocytes 0.1 % 0.0-1.0 Lymphocytes 28 % 20-46 MCH 28.3 pg 27.0-32.0 MCHC 33.5 g/dL 32.0-36.0 MCV 84.4 fL 82.0-99.0 Monocytes 13 % 4-11 MPV 11.3 fL 8.8-14.8 Neutrophils 55 % 51-75 Platelet Count 231 K/uL 150-400 RBC 5.51 10*6/uL 4.60-6.20 RDW 13.4 % 11.5-14.5 WBC 7.2 K/uL 4.8-10.8 TSH with Reflex Free T4 - 09/12/16 15:00 TSH with Reflex Free T4 0.64 uIU/mL 0.35- 4.94 Hemoglobin A1C - 09/12/16 15:00 Hemoglobin A1C 5.0 % 4.1-5.6 Estimated Average Glucose - 09/12/16 15:00 Estimated Average Glucose 96.8 mg/dL Urinalysis with reflex microscopic - 09/12/16 15:08 Appearance Clear NA Blood Negative NA Negative Color DkYellow NA Glucose, Urine Negative Negative Ketones Negative Negative Leukocyte Esterase Negative NA Negative Nitrites Negative NA Negative pH 6.5 NA 5.0-8.0 Protein Trace Negative Specific [place] 1.028 NA 1.003-1.030 UA Collection type Voided NA Urobilinogen 1.0 mg/dL <1.0 Encounters ACCT No. Visit Date/Time Discharge Status Pt. Type Provider Facility Loc./Unit Complaint [id number] 05/07/2013 18:55:00 2012 20:50:00 DIS Emergency Asa MORTENSEN MD, Roberto Moreira [facility] [id number] 03/26/2012 10:47:00 2011 23:59:59 CLS Outpatient Mey CAI, Kassidy Nguyen [facility] FO
--- NOTE | 2016-11-25 20:14 | NUR ---
PROVIDER DR MCCULLOUGH IN TO SEE PATIENT.
--- OUTSIDE RECORDS SUMMARY | 2016-11-25 20:25 | XMS REPORT | Continuity of Care Document ---
Author Author [facility] Organization [facility] Address Unknown Phone Unavailable Allergies Active Description [...] 81 mg, Oral , Daily, 0 Refill(s) HYDROcodone-acetaminophen([place] 7.5 mg-325 mg oral tablet) 1 tabs [...] 6.5 NA 5.0-8.0 Protein Trace Negative Specific [place] 1.028 NA 1.003-1.030 UA Collection type Voided NA Urobilinogen 1.0 mg/dL <1.0 Encounters ACCT No. Visit Date/Time Discharge Status Pt. Type Provider Facility Loc./Unit Complaint [id number] 05/07/2013 18:55:00 2012 20:50:00 DIS Emergency Asa MORTENSEN MD, Roberto [facility] [id number] 03/26/2012 10:47:00 2011 23:59:59 CLS Outpatient Mey CAI, Kassidy Nguyen [facility] FO
[2016-11-25] MEDS ORDERED: KETOROLAC 60mg/2ml INJECTION IM ONE (20:30)
[2016-11-25] MEDS ORDERED: CYCL-375 PO (20:37)
[2016-11-25 20:40] LABS: BASOPHILS # (AUTO) 0.1 T/MM3 (0-0.2); BASOPHILS % (AUTO) 0.9 % (0-2); EOSINOPHILS # (AUTO) 0.3 T/MM3 (0-0.5); EOSINOPHILS % (AUTO) 4.7 % (0-4); HCT - HEMATOCRIT 45.6 % (41-53); HGB - HEMOGLOBIN 15.9 GM/DL (13.5-17.5); IMMATURE GRANULOCYTE # (AUTO) 0.01 T/MM3 (0.00-0.03); IMMATURE GRANULOCYTE % (AUTO) 0.1 % (0.0-0.5); LYMPHOCYTES # (AUTO) 2.3 T/MM3 (1-4.8); MEAN CORPUSCULAR HGB 29.1 UUG (26-34); MEAN CORPUSCULAR HGB CONC(MCHC 34.9 GM/DL (31-37); MEAN CORPUSCULAR VOLUME 83.4 UM3 (80-100); MEAN PLATELET VOLUME 10.2 UM3 (9.4-12.4); MONOCYTES # (AUTO) 0.5 T/MM3 (0-0.8); MONOCYTES % (AUTO) 7.5 % (0-9.0); NEUTROPHILS #(AUTO)-ABSOLUTE 3.7 T/MM3 (1.8-7.7); NEUTROPHILS % (AUTO) 53.8 % (33-66); RED BLOOD COUNT 5.47 M/MM3 (4.50-5.90)
--- NOTE | 2016-11-25 20:40 | NUR ---
TO XRAY PER W/C.
[2016-11-25 20:50] LABS: ALBUMIN 4.2 G/DL (3.5-5.0); ALBUMIN/GLOBULIN RATIO 1.2 RATIO (1.1-2.2); ALKALINE PHOSPHATASE 123 U/L (38-126); ALT (SGPT) 244 U/L (21-72); ANION GAP 14 MEQ/L (5-15); AST (SGOT) 222 U/L (17-59); BUN/CREATININE RATIO 12 RATIO (6-26); CALCIUM 9.9 MG/DL (8.4-10.2); CHLORIDE 106 MEQ/L (98-107); CO2 - CARBON DIOXIDE 25 MEQ/L (22-30); CREATININE 0.9 MG/DL (0.8-1.5); GLOMERULAR FILTRATION RATE 90; GLUCOSE 113 MG/DL (75-110); LIPASE 146 U/L (23-300); POTASSIUM 3.9 MEQ/L (3.6-5); SODIUM 145 MEQ/L (134-144); TOTAL PROTEIN 7.8 G/DL (6.3-8.2)
[2016-11-25] MEDS ORDERED: HYDROMORPHONE 2mg/ml INJECTION IM ONE (21:15)
--- NOTE | 2016-11-25 21:15 | NUR ---
PROVIDER DR MCCULLOUGH IN TO SEE PATIENT.
--- NOTE | 2016-11-25 21:23 | NUR ---
TO CT PER W/C.
[2016-11-25 21:27] LABS: BLOOD, URINE NEGATIVE (NEGATIVE); COLOR,URINE YELLOW (YELLOW); LEUKOCYTE ESTERASE ,URINE NEGATIVE (NEGATIVE); NITRITE,URINE NEGATIVE (NEGATIVE); UROBILINOGEN,URINE 0.2 EU/DL (NORMAL)
--- NOTE | 2016-11-25 22:27 | NUR ---
PROVIDER DR MCCULLOUGH IN TO SEE PATIENT.
--- NOTE | 2016-11-25 22:36 | ERPDOC ---
Departure Disposition Decision Date: Nov 25, 2016 Disposition Decision Time: 22:39 Disposition: 01 DISCHARGED HOME, SELF-CARE Impression Impression Impression: Primary Impression: Thoracic nerve root compression Severity: Moderate Condition: Improved Seen By: Physician only Referrals: JASS EPPERSON MD (Family) Patient Instructions: Thoracic Back Strain (ED) Problems/Meds/Labs Reviewed?: Yes Medications reviewed and manag: Yes Additional Instructions: Prednisone 10 mg tablet, 3 tablets daily for 3 days, 2 tablets daily for 3 days , 1 tablet daily for 3 days. Percocet 5 mg tablet, one to 2 tablets every 6 hours as needed for pain. This is a limited dose and is intended for short-term use only. Please follow up with her primary care provider as soon as possible. Follow up care ordered?: Yes Mental Status: Alert, Oriented Scripts Oxycodone HCl/Acetaminophen (Percocet 5-325 mg Tablet) 5-325 Tablet 1-2 TAB PO QID for PAIN, #20 TAB Take 1 tablet, by mouth, 4 times a day. Prov: ROSALINE MCCULLOUGH MD 11/25/16 Prednisone (Prednisone) 10 Mg Tablet 0 PO TAPERQD, #18 TAB 30 mg daily x3 days 20 mg daily x3 days 10 mg daily x2 days Prov: ROSALINE MCCULLOUGH MD 11/25/16 HPI - Back Pain General Chief Complaint: Back Pain or Injury Stated Complaint: BACK PAIN Time Seen by Provider: 20:01 HPI - Back Pain Initial Comments 46-year-old male presents with right-sided rib and back pain. This was sudden onset with no injury that he can think of. However he has been moving, he does have movers they're doing all the lifting and bending but he has been active during the move. No fever or chills, no difficulty urinating. He did spend 24 years in the , was a [employer], and very active carrying extra weight. He has had some back pain since that time, but nothing into the ribs on the side. Pain does not radiate down his legs, he's had no trouble losing bowel or bladder control. Allergies: Coded Allergies: No Known Allergies (Unverified , 09/28/15) Past History Past Medical History Metabolic: hypertension, other Family History Family PMH: FOUND: CAD, [place] Social History Smoking Status: Unknown if ever smoked Substance Use Type: does not use Alcohol Intake: none Record Review Pertinent history updated: Yes Review of Systems Musculoskeletal General: see HPI Neurological General: see HPI All other Systems All Other Systems: Reviewed and Negative Physical Exam General General Nourishment: well nourished, well developed, appears stated age Distress Description Any movement of back or hips seems to cause the pain to spasm into his side. Vitals and Pain First Documented Vital Signs Date Time Temp Pulse Resp B/P Pulse Ox O2 Delivery O2 Flow Rate FiO2 11/25/16 19:52 98.6 104 16 167/91 95 Room Air Weight: Kilograms: 122.000 Height (feet): 5 Height (inches): 7.00 Triage Pain Scale: Normal Exams: Head: Normocephalic w/o trauma Chest/Resp: Clear all [place], with good airflow, and symmetry bilaterally CV: Regular rate and rhythm, without murmur or gallop, Pulses 2+ all extremities, capillary refill, <2 seconds all ext., no pedal edema noted Neurologic: Patient is alert, and oriented, cranial nerves, motor/sensory/ cerebellar, exams w/o gross deficits, to observation Psychiatric: Patient exhibits, appropriate attention, emotion and affect Musculoskeletal (brief) Comments Ribs and spine are nontender to palpation. However any movement of back causes pain to radiate to the rib. Right side thoracic. Neurologic (brief) Comments Cranial nerve II through XII grossly intact, motor strength and sensory are intact in all extremities. Differential Diagnoses Considering: Other (nerve compression, muscle pain, radiculopathy) Progress Results/Orders Orders Procedure Category Date Status Time Cmp - Comprehensive LAB 11/25/16 Complete Metabolic 20:22 Cbc W/Auto LAB 11/25/16 Complete Diff-Reflex Manual 20:22 Lipase LAB 11/25/16 Complete 20:22 Ua, Dip Wreflex LAB 11/25/16 Complete Microsc [employer] System Admin 20:22 Lumbar Spine 2-3 Views RAD 11/25/16 Taken 20:22 Thoracic Spine RAD 11/25/16 Taken Series, 3 View 20:22 Ketorolac (Toradol) PHA 11/25/16 Complete 20:30 Hydromorphone PHA 11/25/16 Logged (Dilaudid) 21:15 Ct Thoracic Spine W/O CT 11/25/16 Logged Contrast 21:14 Lab Results Laboratory Tests Test 11/25/16 20:30 11/25/16 21:22 White Blood Count 7.0T/MM3 Red Blood Count 5.47M/MM3 Hemoglobin 15.9GM/DL Hematocrit 45.6% Mean Corpuscular Volume 83.4UM3 Mean Corpuscular Hemoglobin 29.1UUG Mean Corpuscular Hemoglobin Concent 34.9GM/DL RDW Standard Deviation 42.9FL Platelet Count 219T/MM3 Mean Platelet Volume 10.2UM3 Immature Granulocyte % (Auto) 0.1% Neutrophils (%) (Auto) 53.8% Lymphocytes (%) (Auto) 33.0% Monocytes (%) (Auto) 7.5% Eosinophils (%) (Auto) 4.7% Basophils (%) (Auto) 0.9% Absolute Immature Granulocyte (auto 0.01T/MM3 Absolute Neutrophils (auto) 3.7T/MM3 Absolute Lymphocytes (auto) 2.3T/MM3 Absolute Monocytes (auto) 0.5T/MM3 Absolute Eosinophils (auto) 0.3T/MM3 Absolute Basophils (auto) 0.1T/MM3 Turbidity < 20 Sodium Level 145MEQ/L Potassium Level 3.9MEQ/L Chloride Level 106MEQ/L Carbon Dioxide Level 25MEQ/L Anion Gap 14MEQ/L Blood Urea Nitrogen 11.0MG/DL Creatinine 0.9MG/DL Glomerular Filtration Rate Calc 90 BUN/Creatinine Ratio 12RATIO Glucose Level 113MG/DL Calculated Osmolality 279MOSM/KG Calcium Level 9.9MG/DL Total Bilirubin 0.70MG/DL Icterus Index < 2 Aspartate Amino Transf (AST/SGOT) 222U/L Alanine Aminotransferase (ALT/SGPT) 244U/L Alkaline Phosphatase 123U/L Total Protein 7.8G/DL Albumin 4.2G/DL Globulin 3.6G/DL Albumin/Globulin Ratio 1.2RATIO Lipase 146U/L Chemistry Specimen Hemolysis < 15 Urine Collection Type Cleancatch-midstream Urine Color Yellow Urine Turbidity Clear Urine pH 5.0 Urine Specific [place] >=1.030 Urine Protein Negative Urine Glucose (UA) Negative Urine Ketones Negative Urine Blood Negative Urine Nitrite Negative Urine Bilirubin Negative Urine Urobilinogen 0.2EU/DL Urine Leukocyte Esterase Negative Urinalysis Comment Microscopic not ind. Medications Current ED Medications Ketorolac Tromethamine (Toradol) 60 mg O ONCE IM Last administered on t 20:34; Start 11/25/16 at 20:30; Stop 11/25/16 at 20:31; Status DC Hydromorphone HCl (Dilaudid) 1 mg O ONCE IM Last administered on 11/25/16t 21: 20; Start 11/25/16 at 21:15; Stop 11/25/16 at 21:16; Status UNV Progress Progress X-ray was questionable for compression of T9 her T10, CT of spine was obtained and was read as negative. A 2 cm incidental nodule along kidney was noted and patient was informed. I do think this is a radiculopathy from nerve compression , patient may need an MRI to better evaluate. We'll start him on prednisone and pain medication for the next few days while he gets in with a regular physician. He was given Dilaudid 0.5 mg and Toradol 60 mg IM, pain did not fully resolve, he was given 1 more milligram of Dilaudid IM and this did help significantly with his pain. He'll be discharged with Percocet and prednisone ROSALINE MCCULLOUGH MD Nov 25, 2016 22:36
[2016-11-25] MEDS ORDERED: OXYC1TAB8 PO (22:41)
[2016-11-25] MEDS ORDERED: PRED10TA PO (22:41)
[2016-11-25] MEDS ORDERED: OXYCODONE/APAP 5/325 (Prepack) SENT HOME ONE (22:45)
[2016-11-25] MEDS ORDERED: PredniSONE 10 MG TABLET PO ONE (22:45)
[2016-11-25 22:53] VITALS: BP 160/85; PULSE 95; RESP 16; TEMP 98.8; O2SAT 98
--- NOTE | 2016-11-26 08:25 | DI ---
EXAM: LUMBAR SPINE 2-3 VIEWS DATE: 11/25/2016 8:22 PM ENCOUNTER: Initial INDICATION: ITS.REASON: low back pain COMPARISON: Concurrent thoracic spine radiographs, subsequent Thoracic Spine CT of the same day TECHNIQUE: 3 views of the lumbar spine were obtained. FINDINGS: Five non rib-bearing lumbar type vertebrae are identified. Bony mineralization is normal. The vertebral bodies are normal in height and alignment without evidence of acute fracture or significant spondylolisthesis. Mild multilevel degenerative disc disease and facet arthropathy, most pronounced at L4-L5 and L5-S1. The sacroiliac joints are normal. The visualized bowel gas pattern is unremarkable. Mild aortic atherosclerotic calcifications. IMPRESSION: 1. No acute fracture or malalignment. 2. Mild degenerative spondylosis. .
--- NOTE | 2016-11-26 08:27 | DI ---
EXAM: THORACIC SPINE SERIES, 3 VIEW DATE: 11/25/2016 8:22 PM ENCOUNTER: Initial INDICATION: ITS.REASON: thoracic back pain COMPARISON: Concurrent lumbar spine radiographs, subsequent thoracic spine CT of the same day TECHNIQUE: 3 views of the thoracic spine were obtained. FINDINGS: Bony mineralization is normal. The normal thoracic kyphosis is maintained. The vertebral bodies maintain normal height and alignment without evidence of acute compression fracture or significant spondylolisthesis. Degenerative disc disease. The visualized lungs are clear. The heart is normal in size. IMPRESSION: Degenerative disc disease with no acute fracture or malalignment of the thoracic spine appreciated. .
--- NOTE | 2016-11-26 08:35 | DI ---
EXAM: CT THORACIC SPINE W/O CONTRAST DATE: 11/25/2016 9:14 PM ENCOUNTER: Subsequent INDICATION: ITS.REASON: lower thoracic pain with radiculopathy COMPARISON: Prior thoracic and lumbar spine radiographs of the same day TECHNIQUE: Multiple axial tomographic images were obtained through thoracic spine without contrast. Sagittal and Coronal reconstructions were performed. These were viewed on bony and soft tissue settings. The current CT scan was performed using radiation dose-reduction techniques. FINDINGS: No acute fracture. No osteolytic or osteoblastic lesions. The normal thoracic kyphosis is maintained. No significant spondylolisthesis. Multilevel degenerative disc disease. No significant disc bulging, spinal canal stenosis, or neural foraminal narrowing appreciated by CT. No soft tissue abnormality is identified. The visualized lungs are clear. Calcified pulmonary nodules and mediastinal/hilar lymph nodes consistent with remote granulomatous disease. Coronary arterial and thoracic aortic atherosclerotic calcifications. Low-density (less than 20 Hounsfield units) exophytic left renal lesion likely related to a cyst. IMPRESSION: 1. No acute osseous abnormality of the thoracic spine 2. Degenerative disc disease with no significant disc bulging, spinal canal stenosis, or neural foraminal narrowing appreciated by CT. 3. Low-density exophytic left renal lesion likely related to a cyst. The above report concurs with the preliminary report provided by [facility] at 10:05 PM. .
== END 2016-11-25 22:53 | disposition home or self-care (01) ==
LOC: ED 19:51
DX: G54.3 Thoracic root disorders, not elsewhere classified (principal)
CPT/HCPCS: 36415; 72072; 72100; 72128; 80053; 81003; 83690; 85025; 96372; 99284; J1170; J1885; J7512